=== PATIENT | male | born 1985 | race African-American/Black ===

== ENCOUNTER 2017-04-29 16:34 | Emergency (ER) | payer OTHER ==
[~2017-04-29] VITALS: Ht 167.6 cm; Wt 59.4 kg
[2017-04-29] MEDS ORDERED: IBUPROFEN 600600 M1 PO (18:24)
== END 2017-04-29 18:43 | disposition home or self-care (01) ==
LOC: ER 16:34
DX: T70.29XA Other effects of high altitude, initial encounter (principal); H72.91 Unspecified perforation of tympanic membrane, right ear; F17.210 Nicotine dependence, cigarettes, uncomplicated; Y04.0XXA Assault by unarmed brawl or fight, initial encounter; Y93.89 Activity, other specified; Y92.89 Other specified places as the place of occurrence of the external cause; Y99.8 Other external cause status

== ENCOUNTER 2018-01-20 06:58 | Emergency (ER) | payer OTHER ==
[~2018-01-20] VITALS: Ht 167.6 cm; Wt 60.8 kg
[~2018-01-20 06:58] MED LIST: IBUPROFEN 600600 M1 PO
[2018-01-20 06:59] VITALS: BP 135/88
[2018-01-20] MEDS ORDERED: NAPROSYN500 MG PO (07:35)
== END 2018-01-20 07:45 | disposition home or self-care (01) ==
LOC: ER 06:58
DX: S80.01XA Contusion of right knee, initial encounter (principal); F17.210 Nicotine dependence, cigarettes, uncomplicated; X58.XXXA Exposure to other specified factors, initial encounter; Y93.67 Activity, basketball; Y92.89 Other specified places as the place of occurrence of the external cause; Y99.8 Other external cause status

== ENCOUNTER 2019-10-21 02:56 | Emergency (ER) | payer OTHER ==
[~2019-10-21] VITALS: Ht 170.2 cm; Wt 60.8 kg
[~2019-10-21 02:56] MED LIST changes: +NAPROSYN500 MG PO
[2019-10-21] MEDS ORDERED: NOHOMEMEDICATIONS (03:01)
[2019-10-21 03:47] VITALS: BP 130/88
== END 2019-10-21 03:48 | disposition home or self-care (01) ==
LOC: ER 02:56
DX: J02.0 Streptococcal pharyngitis (principal); I10 Essential (primary) hypertension; F17.210 Nicotine dependence, cigarettes, uncomplicated